=== PATIENT | female | born 1960 | race Caucasian/White ===

== ENCOUNTER 2020-02-21 13:51 | Emergency (ER) | payer MEDICAID ==
--- NOTE | 2020-02-21 15:27 | ED Physician Documentation ---
History of Present Illness - Stated complaint Stated Complaint: LT LEG PX - Chief complaint Chief Complaint: Ext Problem - History obtained from History obtained from: Patient - History of Present Illness Timing: Today - Additonal information Additional information: 59-year-old female with a get out of bed this morning to go get the kids off to school when she noted pain to the back of her left leg. It was bad after made it difficult for her to walk. She has pain in the back of the knee and this radiates up to the back of the thigh as well as down the back of the calf. She has mild swelling and she has pain enough when she goes to try to walk that this is difficult. Review of Systems Constitutional: denies: Fever Eyes: denies: Decreased vision Ears: denies: Ear pain Nose: denies: Congestion Throat: denies: Sore throat Cardiac: denies: Chest pain / pressure, Palpitations Respiratory: denies: Dyspnea, Cough GI: denies: Abdominal Pain, Nausea, Vomiting : denies: Dysuria PD PAST MEDICAL HISTORY - Past Medical History Cardiovascular: Hypertension Neuro: TIA Endocrine/Autoimmune: Type 2 diabetes Musculoskeletal: Fibromyalgia, Rheumatoid arthritis - Past Surgical History Past Surgical History: Yes Ortho: Carpal Tunnel surgery /[employer]: Breast reduction - Present Medications Home Medications: Ambulatory Orders Medication Instructions Recorded Confirmed Meloxicam [Mobic] 7.5 mg PO BID PRN #20 tablet 02/21/20 - Allergies Allergies/Adverse Reactions: Allergies Allergy/AdvReac Type Severity Reaction Status Date / Time lisinopril Allergy Respiratory Verified 02/21/20 14:02 Sulfa (Sulfonamide AdvReac Emesis Verified 02/21/20 14:02 Antibiotics) - Social History Does the pt smoke?: No Smoking Status: Never smoker Does the pt drink ETOH?: No Does the pt have substance abuse?: No - Immunizations Immunizations are current?: Yes - POLST Patient has POLST: No PD ED PE NORMAL - Vitals Vital signs reviewed: Yes (Hypertensive mild) - General General: Alert and oriented X 3, No acute distress, Well developed/nourished - HEENT HEENT: Atraumatic, PERRL, EOMI - Respiratory Respiratory: No respiratory distress - Derm Derm: Normal color, Warm and dry, No rash - Extremities Extremities: No deformity, No edema, Other (There is mild tenderness to the posterior calf and to the popliteal fossa and extending into the distal posterior thigh. There is a positive Homans' sign. 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 No DVT in the left lower extremity.), EMP read indepedently, See rad report PD MEDICAL DECISION MAKING - ED course Complexity details: reviewed results, re-evaluated patient, considered differential, d/w patient ED course: 59-year-old female awoke with pain down the back of her left leg concerning for the possibility of a DVT. There is no evidence of DVT on ultrasound examination she does have pain to the back of her leg with movement and consistent with a strain. Departure - Departure Disposition: 01 Home, Self Care Clinical Impression: Pain of lower extremity Qualifiers: Laterality: left Qualified Code(s): M79.605 - Pain in left leg Condition: Stable Instructions: ED Strain Muscle Ext Follow-Up: Jovanni Person PA [Primary Care Provider] - Prescriptions: Meloxicam [Mobic] 7.5 mg PO BID PRN #20 tablet PRN Reason: Pain
[2020-02-21 17:22] VITALS: BP 149/88
--- NOTE | 2020-02-21 17:26 | Ultrasound Report ---
PROCEDURE: Duplex Ext Veins Left INDICATIONS: swelling/pain posterior left lg TECHNIQUE: Real-time imaging, as well as color and pulse Doppler interrogation, were performed of the lower extr emity deep veins from the inguinal ligament to the popliteal fossa. COMPARISON: None. FINDINGS: The deep veins are normally compressible, and free of intraluminal thrombus. Color and pu lse Doppler demonstrate normal phasic intraluminal flow. There is normal augmentation response to di stal compression maneuver. IMPRESSION: 1. No DVT in the left lower extremity. 2. Preliminary findings conveyed by the technologist to the emergency room provider. Reviewed by: Amna Brumfield MD on 02/21/2020 5:25 PM PST Approved by: Amna Brumfield MD on 02/21/2020 5:25 PM PST Station ID: [id number]
[2020-02-21] MEDS ORDERED: KETOROLAC 60 MG/2 ML VIAL IM STA (17:30)
== END 2020-02-21 17:46 | disposition home or self-care (01) ==
LOC: ED 13:51
DX: M79.662 Pain in left lower leg (principal); E11.9 Type 2 diabetes mellitus without complications; I10 Essential (primary) hypertension
CPT/HCPCS: 96372; 99284

== ENCOUNTER 2021-02-26 13:42 | Emergency (ER) | payer MEDICAID ==
--- NOTE | 2021-02-26 14:17 | XRAY Report ---
PROCEDURE: Chest 1 View X-Ray INDICATIONS: Chest pain TECHNIQUE: One view of the chest was acquired. COMPARISON: None FINDINGS: Surgical changes and devices: None. Lungs and pleura: No pleural effusions or pneumothorax. Lungs are clear. Mediastinum: Mediastinal contours appear normal. Heart size is normal. Bones and chest wall: No suspicious bony lesions. Overlying soft tissues appear unremarkable. IMPRESSION: No acute cardiopulmonary disease process. Reviewed by: Park Carrillo MD, PhD on 02/26/2021 1:16 PM [facility] Approved by: Park Carrillo MD, PhD on 02/26/2021 1:16 PM [facility] Station ID: [id number]
[2021-02-26 14:40] LABS: BASOPHILS % (AUTO) 0.6 %; EOSINOPHILS % (AUTO) 0.9 %; HGB - HEMOGLOBIN 13.5 g/dL (12.0-16.0); LYMPHOCYTES # (AUTO) 1.8 10^3/uL (1.5-3.5); LYMPHOCYTES % (AUTO) 56.3 %; MEAN CORPUSCULAR HEMOGLOBIN 28.8 pg (27.0-31.0); MEAN CORPUSCULAR HGB CONC 33.8 g/dL (32.0-36.0); MEAN CORPUSCULAR VOLUME 85.5 fL (81.0-99.0); MEAN PLATELET VOLUME 9.2 fL (7.9-10.8); MONOCYTES # (AUTO) 0.4 10^3/uL (0.0-1.0); MONOCYTES % (AUTO) 12.9 %; NEUTROPHILS # (AUTO) 0.9 10^3/uL (1.5-6.6); PLT - PLATELET COUNT 190 10^3/uL (130-450); RED BLOOD COUNT 4.68 10^6/uL (4.20-5.40); RED CELL DISTRIBUTION WIDTH 12.7 % (12.0-15.0); WHITE BLOOD COUNT 3.2 x10^3/uL (4.8-10.8)
--- NOTE | 2021-02-26 14:42 | ED Physician Documentation ---
PD HPI DYSPNEA - Stated complaint Stated Complaint: CHEST PX/COUGH - Chief complaint Chief Complaint: Resp - History obtained from History obtained from: Patient - Additional information Additional information: 60-year-old woman with history of hypertension and fibromyalgia got a COVID shot last week and the next day developed productive cough with white sputum and burning chest pain especially when she coughs. She is not short of breath with it and has no fever. No diffuse muscle aches except for her regular fibromyalgia pain. She took a muscle relaxer last night and was able to sleep okay. Of note she also notes that she switched from famotidine to omeprazole the day this all started and wonders if she might have GERD. Review of Systems Constitutional: denies: Fever, Chills Nose: denies: Rhinorrhea / runny nose, Congestion Cardiac: denies: Palpitations, Pedal edema, Calf pain Respiratory: denies: Hemoptysis, Wheezing PD PAST MEDICAL HISTORY - Past Medical History Cardiovascular: Hypertension Neuro: TIA Endocrine/Autoimmune: Type 2 diabetes Musculoskeletal: Fibromyalgia, Rheumatoid arthritis - Past Surgical History Past Surgical History: Yes Ortho: Carpal Tunnel surgery /[employer]: Breast reduction - Present Medications Home Medications: Ambulatory Orders Medication Instructions Recorded Confirmed Meloxicam [Mobic] 7.5 mg PO BID PRN #20 tablet 02/21/20 Albuterol Sulf [Ventolin Hfa 1 - 2 puffs INH Q4HR PRN #1 inhaler 02/26/21 Inhaler] Meloxicam [Mobic] 7.5 mg PO BID PRN #7 tablet 02/26/21 Omeprazole 40 mg PO DAILY #30 cap 02/26/21 - Allergies Allergies/Adverse Reactions: Allergies Allergy/AdvReac Type Severity Reaction Status Date / Time lisinopril Allergy Respiratory Verified 02/26/21 13:51 Sulfa (Sulfonamide AdvReac Emesis Verified 02/26/21 13:51 Antibiotics) - Social History Does the pt smoke?: No Smoking Status: Never smoker Does the pt drink ETOH?: No Does the pt have substance abuse?: No - Immunizations Immunizations are current?: Yes - POLST Patient has POLST: No PD ED PE NORMAL - Vitals Vital signs reviewed: Yes - General General: Alert and oriented X 3, No acute distress - HEENT HEENT: PERRL, EOMI - Neck Neck: Supple, no meningeal sign, No bony TTP - Cardiac Cardiac: RRR, No murmur - Respiratory Respiratory: No respiratory distress, Clear bilaterally - Abdomen Abdomen: Non tender - Extremities Extremities: No edema, No calf tenderness / cord - Neuro Neuro: Alert and oriented X 3, Normal speech Results - Vitals Vitals: Vital Signs - 24 hr 02/26/21 02/26/21 13:51 15:01 Temperature 36.7 C Heart Rate 73 67 Respiratory 19 16 Rate Blood Pressure 174/84 H 136/69 H O2 Saturation 100 99 Oxygen O2 Source Room air - EKG (time done) 1352 Rate: Rate (enter#) (69) Rhythm: NSR [place]: Normal Intervals: Normal OK QRS: LVH Ischemia: Normal ST segments - Labs Labs: Laboratory Tests 02/26/21 02/26/21 02/26/21 14:26 14:26 14:26 WBC 3.2 L RBC 4.68 Hgb 13.5 Hct 40.0 MCV 85.5 MCH 28.8 MCHC 33.8 RDW 12.7 Plt Count 190 MPV 9.2 Neut # (Auto) 0.9 L Lymph # (Auto) 1.8 [place] # (Auto) 0.4 Eos # (Auto) 0.0 Baso # (Auto) 0.0 Absolute Nucleated RBC 0.00 Nucleated RBC % 0.0 Sodium 137 Potassium 4.1 Chloride 103 Carbon Dioxide 24 Anion Gap 10.0 BUN 16 Creatinine 0.8 Estimated GFR (MDRD) 73 L Glucose 184 H Calcium 9.0 Total Bilirubin 0.8 AST 47 H ALT 38 Alkaline Phosphatase 63 Troponin I High Sens 23.6 H* Total Protein 7.1 Albumin 3.6 Globulin 3.5 Albumin/Globulin Ratio 1.0 Lipase 28 02/26/21 16:28 WBC RBC Hgb Hct MCV MCH MCHC RDW Plt Count MPV Neut # (Auto) Lymph # (Auto) [place] # (Auto) Eos # (Auto) Baso # (Auto) Absolute Nucleated RBC Nucleated RBC % Sodium Potassium Chloride Carbon Dioxide Anion Gap BUN Creatinine Estimated GFR (MDRD) Glucose Calcium Total Bilirubin AST ALT Alkaline Phosphatase Troponin I High Sens 24.5 H* Total Protein Albumin Globulin Albumin/Globulin Ratio Lipase - Rads (name of study) 1v cxr Radiology: EMP read contemporaneously (NAD) PD MEDICAL DECISION MAKING - ED course ED course: 60-year-old woman with burning chest and back pain associated with productive cough after getting COVID shot. We discussed this would not be from the COVID s hot but she may have some other viral or bacterial illness. Her chest x-ray is negative and her EKG is nonischemic. Troponin came back very mildly elevated and this was repeated after 2 hours and flat, not consistent with an acute coronary syndrome. She was feeling better after having taken omeprazole at home already and feels like this is just GERD. Departure - Departure Disposition: 01 Home, Self Care Clinical Impression: Bronchitis Condition: Good Record reviewed to determine appropriate education?: Yes Instructions: ED Bronchitis Asthmatic Prescriptions: Albuterol Sulf [Ventolin Hfa Inhaler] 1 - 2 puffs INH Q4HR PRN #1 inhaler PRN Reason: Shortness Of Air/Wheezing Meloxicam [Mobic] 7.5 mg PO BID PRN #7 tablet PRN Reason: Pain Omeprazole 40 mg PO DAILY #30 cap Comments: I sent your prescriptions electronically to [facility] in [place]. Call your doctor to arrange a follow-up appointment, make the next available appointment. In the interim, return anytime if worse or if new symptoms develop.
[2021-02-26 14:55] LABS: ALBUMIN 3.6 g/dL (3.2-5.5); BILIRUBIN,TOTAL 0.8 mg/dL (0.2-1.0); CREATININE 0.8 mg/dL (0.4-1.0); POTASSIUM 4.1 mmol/L (3.5-5.0); TOTAL PROTEIN 7.1 g/dL (6.7-8.2)
[2021-02-26 15:03] VITALS: BP 136/69
[2021-02-26] MEDS ORDERED: FAMOTIDINE 20 MG TABLET PO STA (15:03)
== END 2021-02-26 17:15 | disposition home or self-care (01) ==
LOC: ED 13:42
DX: J40 Bronchitis, not specified as acute or chronic (principal); R07.9 Chest pain, unspecified; R79.89 Other specified abnormal findings of blood chemistry; M79.7 Fibromyalgia; I10 Essential (primary) hypertension; E11.9 Type 2 diabetes mellitus without complications
CPT/HCPCS: 36415; 71045; 80053; 83690; 84484; 85025; 93005; 99283; 99284; A9270